=== PATIENT | female | born 1950 | race Caucasian/White ===

== ENCOUNTER 2016-10-01 10:06 | Emergency (ER) | payer OTHER | END 2016-10-01 11:15 | disposition home or self-care (01) | LOC: BURERS 10:06 | DX: H11.32 Conjunctival hemorrhage, left eye (principal); I10 Essential (primary) hypertension; E03.9 Hypothyroidism, unspecified; K58.0 Irritable bowel syndrome with diarrhea; Z87.891 Personal history of nicotine dependence; Z79.899 Other long term (current) drug therapy | CPT/HCPCS: 99282 ==

== ENCOUNTER 2018-02-28 12:32 | Emergency (ER) | payer OTHER ==
[2018-02-28] MEDS ORDERED: Ondansetron ODT 4 MG TAB ONE (13:01)
[2018-02-28 13:27] LABS: #Eosinphils 0.1 thou/uL (0.0-0.7); #Lymphocytes 1.1 thou/uL (1.20-3.40); #Monocytes 0.4 thou/uL (0.11-0.59); #Neutrophils 6.2 thou/uL (1.40-6.50); %Basophils 0.5 % (0.0-1.0); %Eosinophils 1.5 % (0.0-10.0); %Lymphocytes 13.4 % (21.0-51.0); %Monocytes 4.8 % (0.0-10.0); %Neutrophils 79.8 % (42.0-75.0); Hemoglobin 13.6 g/dL (12.0-16.0); Mean Corpuscular HGB CONC 36.5 g/dL (32.0-36.0); Mean Corpuscular Hemoglobin 33.8 pg (27.0-31.0); Mean Corpuscular Volume 92.5 fL (78.0-98.0); Mean Platelet Volume 5.5 fL (7.4-10.4); Platelet Count 305 thou/uL (130-400); RBC Distribution Width 12.9 % (11.5-14.5); Red Blood Cell (RBC) Count 4.03 mill/uL (4.20-5.40); White Blood Cell (WBC) Count 7.8 thou/uL (4.8-10.8)
[2018-02-28 13:34] LABS: ALT (SGPT) 16 U/L (8-55); AST (SGOT) 16 U/L (5-34); Albumin 4.2 g/dL (3.4-4.8); Alkaline Phosphatase 93 U/L (40-150); Anion Gap 17 mmol/L (10-20); BUN (Urea Nitrogen) 15 mg/dL (9.8-20.1); Bilirubin, Total 0.5 mg/dL (0.2-1.2); Calc. Creatinine Clearance 0 mL/min (70-130); Calcium 9.7 mg/dL (7.8-10.44); Carbon Dioxide 25 mmol/L (23-31); Chloride 104 mmol/L (98-107); Estimated GFR-MDRD 70; Globulin 2.9 g/dL (2.4-3.5); Glucose 92 mg/dL (80-115); Protein, Total 7.1 g/dL (6.0-8.3); Sodium 142 mmol/L (136-145)
[2018-02-28] MEDS ORDERED: Ondansetron PF 4 MG/2 ML Vial ONE (14:00)
== END 2018-02-28 15:33 | disposition home or self-care (01) ==
LOC: BURERS 12:32
DX: R11.2 Nausea with vomiting, unspecified (principal); E03.9 Hypothyroidism, unspecified; K58.9 Irritable bowel syndrome, unspecified; I10 Essential (primary) hypertension; Z79.899 Other long term (current) drug therapy
CPT/HCPCS: 36415; 80053; 84443; 84484; 85025; 93005; 96361; 96374; J2405; Q0162

== ENCOUNTER 2018-05-11 09:59 | Emergency (ER) | payer OTHER ==
[2018-05-11 10:23] LABS: #Eosinphils 0.3 thou/uL (0.0-0.7); #Lymphocytes 1.1 thou/uL (1.20-3.40); #Monocytes 0.3 thou/uL (0.11-0.59); #Neutrophils 3.9 thou/uL (1.40-6.50); %Basophils 0.4 % (0.0-1.0); %Eosinophils 4.5 % (0.0-10.0); %Lymphocytes 19.7 % (21.0-51.0); %Monocytes 5.3 % (0.0-10.0); Hemoglobin 13.2 g/dL (12.0-16.0); Mean Corpuscular HGB CONC 33.4 g/dL (32.0-36.0); Mean Corpuscular Hemoglobin 32.8 pg (27.0-31.0); Mean Corpuscular Volume 98.2 fL (78.0-98.0); Mean Platelet Volume 5.6 fL (7.4-10.4); Platelet Count 346 thou/uL (130-400); RBC Distribution Width 14.2 % (11.5-14.5); Red Blood Cell (RBC) Count 4.02 mill/uL (4.20-5.40); White Blood Cell (WBC) Count 5.5 thou/uL (4.8-10.8)
[2018-05-11] MEDS ORDERED: Aspirin Chewable 81 MG TAB ONE (10:30)
[2018-05-11 10:41] LABS: ALT (SGPT) 19 U/L (8-55); AST (SGOT) 18 U/L (5-34); Albumin 4.2 g/dL (3.4-4.8); Alkaline Phosphatase 112 U/L (40-150); Anion Gap 15 mmol/L (10-20); BUN (Urea Nitrogen) 13 mg/dL (9.8-20.1); Bilirubin, Total 0.5 mg/dL (0.2-1.2); Calc. Creatinine Clearance 0 mL/min (70-130); Calcium 9.6 mg/dL (7.8-10.44); Carbon Dioxide 24 mmol/L (23-31); Chloride 107 mmol/L (98-107); Estimated GFR-MDRD 79; Globulin 2.7 g/dL (2.4-3.5); Glucose 103 mg/dL (80-115); Potassium 3.9 mmol/L (3.5-5.1); Protein, Total 6.9 g/dL (6.0-8.3); Sodium 142 mmol/L (136-145)
[2018-05-11 12:14] LABS: Clarity Cloudy (Clear); pH, Urine 5.5 (5.0-9.0)
[2018-05-11 12:15] LABS: Bilirubin Small (Negative); Blood, Urine Trace (Negative); Glucose, Urine (Dipstick) Negative (Negative); Leukocyte Negative (Negative); Nitrite Negative (Negative); Protein, Urine (Dipstick) 30 mg/dL (Neg-Trace); Urobilinogen 0.2 mg/dL (0.2-1.0)
[2018-05-11 12:16] LABS: Bacteria/HPF 2+ HPF (None Seen); Crystals/HPF 4+ CA OXALATE HPF (Negative); RBC/HPF 0-3 HPF (0-3); Specific Gravity, Urine 1.032 (1.002-1.036); Squamous Epithelial 0-3 HPF (0-3); WBC/HPF 0-3 HPF (0-3)
[2018-05-11] MEDS ORDERED: cefTRIAXone\\ROCEPHIN 1 GM VIAL ONE (12:53)
[2018-05-11] MEDS ORDERED: Metoprolol Tartrate 5 MG/5 ML VIAL ONE (13:25)
--- NOTE | 2018-05-11 16:45 | RAD ---
PORTABLE CHEST: Date: 05-11-18 An AP portable film at 1023 is compared with a 09-01-06 study. FINDINGS: The heart remains normal in size and the lungs are clear. No infiltrate or effusion was seen. There i s no vascular congestion or edema. The mediastinum appears normal. IMPRESSION: No acute finding. POS: HOME
== END 2018-05-11 13:45 | disposition home or self-care (01) ==
LOC: BURERS 09:59
DX: R00.2 Palpitations (principal); N30.90 Cystitis, unspecified without hematuria; E03.9 Hypothyroidism, unspecified; I10 Essential (primary) hypertension; Z79.899 Other long term (current) drug therapy; Z79.82 Long term (current) use of aspirin
CPT/HCPCS: 36415; 71045; 80053; 81003; 81015; 84484; 85025; 85379; 87086; 93005; 94760; 96365; 96375; J0696

== ENCOUNTER 2018-06-25 16:04 | Outpatient (CLI) | payer OTHER ==
--- NOTE | 2018-06-25 20:29 | RAD ---
LEFT SHOULDER THREE VIEWS: 06/25/18 A calcification lateral to the humeral head suggests calcific tendonitis. There is some mild degenera tive changes in the AC joint. No fracture or dislocation was seen. There might be some faint calcific ation in the articular cartilage of the humeral head. The scapula and visible adjacent ribs appear no rmal. 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 Mild degenerative change of the AC joint. POS: HOME
== END 2018-06-25 16:05 | disposition home or self-care (01) ==
LOC: BURRAD 16:04
PROVIDERS: ATTEND Family Medicine
DX: M25.512 Pain in left shoulder (principal); M19.012 Primary osteoarthritis, left shoulder

== ENCOUNTER 2018-10-11 10:04 | Emergency (ER) | payer OTHER ==
[2018-10-11 10:42] LABS: #Eosinphils 0.1 thou/uL (0.0-0.7); #Monocytes 0.3 thou/uL (0.11-0.59); #Neutrophils 3.3 thou/uL (1.40-6.50); %Basophils 0.9 % (0.0-1.0); %Eosinophils 1.8 % (0.0-10.0); %Lymphocytes 21.6 % (21.0-51.0); %Monocytes 5.9 % (0.0-10.0); %Neutrophils 69.8 % (42.0-75.0); Hemoglobin 12.8 g/dL (12.0-16.0); Mean Corpuscular Hemoglobin 33.7 pg (27.0-31.0); Mean Corpuscular Volume 99.1 fL (78.0-98.0); Mean Platelet Volume 5.5 fL (7.4-10.4); Platelet Count 319 thou/uL (130-400); RBC Distribution Width 13.3 % (11.5-14.5); Red Blood Cell (RBC) Count 3.81 mill/uL (4.20-5.40); White Blood Cell (WBC) Count 4.7 thou/uL (4.8-10.8)
[2018-10-11 10:56] LABS: ALT (SGPT) 11 U/L (8-55); AST (SGOT) 15 U/L (5-34); Alkaline Phosphatase 96 U/L (40-150); Anion Gap 12 mmol/L (10-20); BUN (Urea Nitrogen) 16 mg/dL (9.8-20.1); Bilirubin, Total 0.6 mg/dL (0.2-1.2); Calc. Creatinine Clearance 0 mL/min (70-130); Calcium 9.4 mg/dL (7.8-10.44); Carbon Dioxide 27 mmol/L (23-31); Chloride 107 mmol/L (98-107); Estimated GFR-MDRD 72; Globulin 2.5 g/dL (2.4-3.5); Glucose 112 mg/dL (80-115); Potassium 4.1 mmol/L (3.5-5.1); Protein, Total 6.5 g/dL (6.0-8.3); Sodium 142 mmol/L (136-145)
[2018-10-11 11:11] LABS: Thyroid Stimulating Hormone 0.819 uIU/mL (0.35-4.94)
== END 2018-10-11 11:26 | disposition home or self-care (01) ==
LOC: BURERS 10:04
DX: R53.1 Weakness (principal); E03.9 Hypothyroidism, unspecified; I10 Essential (primary) hypertension; Z79.899 Other long term (current) drug therapy
CPT/HCPCS: 80053; 83605; 83880; 84443; 84481; 84484; 85025; 93005

== ENCOUNTER 2018-11-04 14:50 | Emergency (ER) | payer OTHER ==
[~2018-11-04 14:50] MED LIST: Iopamidol 370 76% 100 ML VIAL ONE
[2018-11-04 15:25] LABS: #Eosinphils 0.1 thou/uL (0.0-0.7); #Lymphocytes 1.4 thou/uL (1.20-3.40); #Monocytes 0.4 thou/uL (0.11-0.59); #Neutrophils 3.5 thou/uL (1.40-6.50); %Basophils 0.9 % (0.0-1.0); %Eosinophils 1.8 % (0.0-10.0); %Lymphocytes 25.2 % (21.0-51.0); %Monocytes 6.6 % (0.0-10.0); %Neutrophils 65.6 % (42.0-75.0); Hemoglobin 13.6 g/dL (12.0-16.0); Mean Corpuscular HGB CONC 32.8 g/dL (32.0-36.0); Mean Corpuscular Hemoglobin 33.1 pg (27.0-31.0); Mean Platelet Volume 5.6 fL (7.4-10.4); Platelet Count 366 thou/uL (130-400); RBC Distribution Width 13.2 % (11.5-14.5); Red Blood Cell (RBC) Count 4.12 mill/uL (4.20-5.40); White Blood Cell (WBC) Count 5.4 thou/uL (4.8-10.8)
[2018-11-04 15:48] LABS: ALT (SGPT) 20 U/L (8-55); AST (SGOT) 27 U/L (5-34); Albumin 4.5 g/dL (3.4-4.8); Alkaline Phosphatase 104 U/L (40-110); Anion Gap 17 mmol/L (10-20); BUN (Urea Nitrogen) 13 mg/dL (9.8-20.1); Bilirubin, Total 0.6 mg/dL (0.2-1.2); Calc. Creatinine Clearance 0 mL/min (70-130); Calcium 9.8 mg/dL (7.8-10.44); Carbon Dioxide 26 mmol/L (23-31); Chloride 104 mmol/L (98-107); Estimated GFR-MDRD 71; Globulin 2.6 g/dL (2.4-3.5); Glucose 90 mg/dL (80-115); Potassium 4.4 mmol/L (3.5-5.1); Protein, Total 7.1 g/dL (6.0-8.3); Sodium 143 mmol/L (136-145)
--- NOTE | 2018-11-04 19:25 | CT ---
CT AORTIC DISSECTION WITH CONTRAST: 11/04/18 CT angio of the chest and the abdomen down through the bifurcation of the aorta was obtained in this patient with back pain and right upper quadrant pain. Axial slices were required, then MIP reconstruc tions in the coronal and sagittal planes were obtained. There is no sign of aortic aneurysm or dissec tion at any point. The ascending aorta is larger than usual, measuring 4.1 cm wide. The pulmonary ar teries fill very well and show no defects to suggest emboli. The celiac artery and its branches, SMA, and JANA all fill normally. Both renal arteries fill in a normal fashion. Lumbar arteries coming off the back of the aorta fill well. The common iliac and proximal internal iliac arteries fill as well. Thus, there was no evidence of aortic abnormality other than a somewhat wide ascending aorta. The CT of the chest portion of the exam showed the lungs to be clear except for some dependent atelec tasis. No infiltrate, effusion, or worrisome nodule was found. The coronary arteries fill well. There is no sign of a pericardial effusion. The heart is upper normal in size. The liver, spleen, pancreas, gallbladder, kidneys and proximal bowel all appeared normal. There was n o distention of bowel to suggest obstruction and there was no bowel wall thickening. No free air or f ree fluid was seen. Spinal stenosis is noted at L4-L5 due to facet and ligamentous hypertrophy as wel l as a diffusely bulging disc. A mild degree of spinal stenosis is present at L3-L4 also. IMPRESSION: 1. No evidence of aortic aneurysm or dissection. Mild widening of the ascending aorta. 2. No other findings to explain the patient's pain. 3. All visible aortic branches fill normally. POS: HOME
== END 2018-11-04 16:38 | disposition home or self-care (01) ==
LOC: BURERS 14:50
DX: R10.11 Right upper quadrant pain (principal); M54.6 Pain in thoracic spine; E03.9 Hypothyroidism, unspecified; K58.9 Irritable bowel syndrome, unspecified; I10 Essential (primary) hypertension; Z79.899 Other long term (current) drug therapy; Z79.82 Long term (current) use of aspirin; Z79.891 Long term (current) use of opiate analgesic
CPT/HCPCS: 71275; 72191; 74175; 80053; 83690; 83880; 84484; 85025; 85379; Q9967

== ENCOUNTER 2018-11-07 17:33 | Emergency (ER) | payer OTHER ==
[2018-11-07 18:26] LABS: #Eosinphils 0.2 thou/uL (0.0-0.7); #Lymphocytes 1.4 thou/uL (1.20-3.40); #Monocytes 0.4 thou/uL (0.11-0.59); #Neutrophils 3.6 thou/uL (1.40-6.50); %Basophils 0.9 % (0.0-1.0); %Eosinophils 3.2 % (0.0-10.0); %Lymphocytes 24.7 % (21.0-51.0); %Monocytes 6.7 % (0.0-10.0); %Neutrophils 64.5 % (42.0-75.0); Hemoglobin 12.7 g/dL (12.0-16.0); Mean Corpuscular HGB CONC 34.4 g/dL (32.0-36.0); Mean Corpuscular Hemoglobin 33.7 pg (27.0-31.0); Mean Corpuscular Volume 97.9 fL (78.0-98.0); Mean Platelet Volume 5.5 fL (7.4-10.4); Platelet Count 348 thou/uL (130-400); RBC Distribution Width 12.9 % (11.5-14.5); Red Blood Cell (RBC) Count 3.78 mill/uL (4.20-5.40); White Blood Cell (WBC) Count 5.6 thou/uL (4.8-10.8)
[2018-11-07] MEDS ORDERED: Aspirin Chewable 81 MG TAB ONE (18:28)
[2018-11-07 18:40] LABS: ALT (SGPT) 16 U/L (8-55); AST (SGOT) 15 U/L (5-34); Albumin 4.1 g/dL (3.4-4.8); Alkaline Phosphatase 103 U/L (40-110); Anion Gap 15 mmol/L (10-20); BUN (Urea Nitrogen) 18 mg/dL (9.8-20.1); Bilirubin, Total 0.6 mg/dL (0.2-1.2); CK (CPK) 50 U/L (29-168); Calc. Creatinine Clearance 0 mL/min (70-130); Calcium 9.3 mg/dL (7.8-10.44); Carbon Dioxide 24 mmol/L (23-31); Chloride 105 mmol/L (98-107); Estimated GFR-MDRD 54; Globulin 2.6 g/dL (2.4-3.5); Glucose 133 mg/dL (80-115); Lipase 15 U/L (8-78); Potassium 3.8 mmol/L (3.5-5.1); Protein, Total 6.7 g/dL (6.0-8.3); Sodium 140 mmol/L (136-145)
--- NOTE | 2018-11-07 22:24 | RAD ---
PORTABLE CHEST: 11/07/18 An AP portable film at 1816 is compared with the 05/11/18 study. The heart is still within normal limits of size, though it seems slightly larger than it was before. There is no vascular congestion, edema, or pleural effusion. The lungs are clear. IMPRESSION: Minimal increase in heart size. POS: HOME
== END 2018-11-07 20:20 | disposition short-term general hospital (02) ==
LOC: BURERS 17:33
DX: R07.2 Precordial pain (principal); E03.9 Hypothyroidism, unspecified; I10 Essential (primary) hypertension; Z86.73 Personal history of transient ischemic attack (TIA), and cerebral infarction without residual deficits; Z79.899 Other long term (current) drug therapy; Z79.82 Long term (current) use of aspirin; Z87.891 Personal history of nicotine dependence
CPT/HCPCS: 71045; 80053; 82550; 83690; 84484; 85025; 93005

== ENCOUNTER 2018-11-12 15:22 | Inpatient (IN) | payer MEDICARE, OTHER ==
[2018-11-12] MEDS: Levothyroxine Sodium 50 MCG TAB PO SCH (21:16)
[2018-11-12] MEDS: Atorvastatin Calcium 40 MG TAB PO SCH (21:16)
[2018-11-12] MEDS: TICAGRELOR 90 MG TABLET PO SCH (23:32)
[2018-11-13] MEDS: Ubidecarenone 50 MG CAP PO SCH (08:42)
[2018-11-13] MEDS: Aspirin 81 mg Enteric Coated Tablet PO SCH (08:43)
[2018-11-13] MEDS: Mirtazapine 15 MG TAB PO SCH (08:44)
[2018-11-13] MEDS: TICAGRELOR 90 MG TABLET PO SCH ×2 (08:45→20:49)
[2018-11-13] MEDS ORDERED: MESALAMINE 1.2 GM PO SCH (09:00)
[2018-11-13] MEDS ORDERED: FLU VACC TS2019-20(65YR UP)/PF 180 MCG/0.5 ML SYRINGE IM ONE (09:00)
[2018-11-13] MEDS ORDERED: AZATHIOPRINE 150 MG PO SCH (09:00)
[2018-11-13] MEDS ORDERED: azaTHIOprine 50 MG TAB PO SCH (15:00)
[2018-11-13] MEDS ORDERED: Mesalamine DR 400 mg Capsule PO SCH (15:00)
[2018-11-13] MEDS: Mesalamine DR 400 mg Capsule PO SCH (15:19)
[2018-11-13] MEDS: azaTHIOprine 50 MG TAB PO SCH (15:21)
[2018-11-13] MEDS: Levothyroxine Sodium 50 MCG TAB PO SCH (20:48)
[2018-11-13] MEDS: Atorvastatin Calcium 40 MG TAB PO SCH (20:48)
[2018-11-14] MEDS: Ubidecarenone 50 MG CAP PO SCH (08:20)
[2018-11-14] MEDS: Mirtazapine 15 MG TAB PO SCH (08:21)
[2018-11-14] MEDS: Aspirin 81 mg Enteric Coated Tablet PO SCH (08:21)
[2018-11-14] MEDS: azaTHIOprine 50 MG TAB PO SCH (08:22)
[2018-11-14] MEDS: TICAGRELOR 90 MG TABLET PO SCH ×2 (08:22→19:45)
[2018-11-14] MEDS: Mesalamine DR 400 mg Capsule PO SCH (08:24)
[2018-11-14] MEDS: Loperamide HCl 2 MG CAP PO PRN (09:57)
[2018-11-14] MEDS: Atorvastatin Calcium 40 MG TAB PO SCH (19:43)
[2018-11-14] MEDS: Famotidine 20 MG TAB PO SCH (19:44)
[2018-11-14] MEDS: Levothyroxine Sodium 50 MCG TAB PO SCH (19:45)
[2018-11-15] MEDS: Ubidecarenone 50 MG CAP PO SCH (09:11)
[2018-11-15] MEDS: Famotidine 20 MG TAB PO SCH ×2 (09:11→19:48)
[2018-11-15] MEDS: Aspirin 81 mg Enteric Coated Tablet PO SCH (09:12)
[2018-11-15] MEDS: Mirtazapine 15 MG TAB PO SCH (09:12)
[2018-11-15] MEDS: azaTHIOprine 50 MG TAB PO SCH (09:13)
[2018-11-15] MEDS: Mesalamine DR 400 mg Capsule PO SCH (09:13)
[2018-11-15] MEDS: Loperamide HCl 2 MG CAP PO PRN (09:18)
[2018-11-15] MEDS: TICAGRELOR 90 MG TABLET PO SCH ×2 (09:24→19:47)
[2018-11-15] MEDS: Acetaminophen 325 MG TAB PO PRN ×2 (10:29→19:49)
[2018-11-15] MEDS: Levothyroxine Sodium 50 MCG TAB PO SCH (19:49)
[2018-11-15] MEDS: Atorvastatin Calcium 40 MG TAB PO SCH (19:49)
[2018-11-16 02:12] VITALS: BMI 33.6
[2018-11-16] MEDS: Aspirin 81 mg Enteric Coated Tablet PO SCH (08:16)
[2018-11-16] MEDS: Ubidecarenone 50 MG CAP PO SCH (08:17)
[2018-11-16] MEDS: Mirtazapine 15 MG TAB PO SCH (08:17)
[2018-11-16] MEDS: Acetaminophen 325 MG TAB PO PRN ×3 (08:17→23:06)
[2018-11-16] MEDS: Famotidine 20 MG TAB PO SCH ×2 (08:17→20:18)
[2018-11-16] MEDS: TICAGRELOR 90 MG TABLET PO SCH ×2 (08:18→20:18)
[2018-11-16] MEDS: Mesalamine DR 400 mg Capsule PO SCH (08:18)
[2018-11-16] MEDS: azaTHIOprine 50 MG TAB PO SCH (10:25)
[2018-11-16] MEDS: Atorvastatin Calcium 40 MG TAB PO SCH (20:18)
[2018-11-16] MEDS: Levothyroxine Sodium 50 MCG TAB PO SCH (20:18)
[2018-11-17] MEDS: Acetaminophen 325 MG TAB PO PRN ×3 (05:25→20:22)
[2018-11-17] MEDS: Mesalamine DR 400 mg Capsule PO SCH (08:15)
[2018-11-17] MEDS: Ubidecarenone 50 MG CAP PO SCH (08:16)
[2018-11-17] MEDS: Mirtazapine 15 MG TAB PO SCH (08:17)
[2018-11-17] MEDS: azaTHIOprine 50 MG TAB PO SCH (08:17)
[2018-11-17] MEDS: Aspirin 81 mg Enteric Coated Tablet PO SCH (08:17)
[2018-11-17] MEDS: Famotidine 20 MG TAB PO SCH ×2 (08:18→20:22)
[2018-11-17] MEDS: TICAGRELOR 90 MG TABLET PO SCH ×2 (08:20→20:22)
[2018-11-17] MEDS: Levothyroxine Sodium 50 MCG TAB PO SCH (20:22)
[2018-11-17] MEDS: Atorvastatin Calcium 40 MG TAB PO SCH (20:22)
[2018-11-18] MEDS: Mesalamine DR 400 mg Capsule PO SCH (08:48)
[2018-11-18] MEDS: azaTHIOprine 50 MG TAB PO SCH (08:49)
[2018-11-18] MEDS: Famotidine 20 MG TAB PO SCH ×2 (08:50→20:02)
[2018-11-18] MEDS: Mirtazapine 15 MG TAB PO SCH (08:50)
[2018-11-18] MEDS: Aspirin 81 mg Enteric Coated Tablet PO SCH (08:50)
[2018-11-18] MEDS: Ubidecarenone 50 MG CAP PO SCH (08:51)
[2018-11-18] MEDS: TICAGRELOR 90 MG TABLET PO SCH ×2 (08:51→20:02)
[2018-11-18] MEDS: Levothyroxine Sodium 50 MCG TAB PO SCH (20:01)
[2018-11-18] MEDS: Atorvastatin Calcium 40 MG TAB PO SCH (20:02)
[2018-11-18] MEDS: Acetaminophen 325 MG TAB PO PRN (20:02)
[2018-11-19] MEDS: azaTHIOprine 50 MG TAB PO SCH (09:02)
[2018-11-19] MEDS: Mesalamine DR 400 mg Capsule PO SCH (09:03)
[2018-11-19] MEDS: Aspirin 81 mg Enteric Coated Tablet PO SCH (09:03)
[2018-11-19] MEDS: Ubidecarenone 50 MG CAP PO SCH (09:04)
[2018-11-19] MEDS: TICAGRELOR 90 MG TABLET PO SCH ×2 (09:05→20:44)
[2018-11-19] MEDS: Mirtazapine 15 MG TAB PO SCH (09:05)
[2018-11-19] MEDS: Famotidine 20 MG TAB PO SCH ×2 (09:06→20:39)
[2018-11-19] MEDS: Loperamide HCl 2 MG CAP PO PRN (09:09)
[2018-11-19] MEDS: Atorvastatin Calcium 40 MG TAB PO SCH (20:39)
[2018-11-19] MEDS: Levothyroxine Sodium 50 MCG TAB PO SCH (20:39)
[2018-11-20 06:21] VITALS: BP 129/66; TEMP 97.8
[2018-11-20] MEDS: Mirtazapine 15 MG TAB PO SCH (09:51)
[2018-11-20] MEDS: Ubidecarenone 50 MG CAP PO SCH (09:51)
[2018-11-20] MEDS: azaTHIOprine 50 MG TAB PO SCH (09:52)
[2018-11-20] MEDS: Mesalamine DR 400 mg Capsule PO SCH (09:52)
[2018-11-20] MEDS: Aspirin 81 mg Enteric Coated Tablet PO SCH (09:52)
[2018-11-20] MEDS: Loperamide HCl 2 MG CAP PO PRN (09:53)
[2018-11-20] MEDS: TICAGRELOR 90 MG TABLET PO SCH (09:53)
[2018-11-20] MEDS: Famotidine 20 MG TAB PO SCH (09:53)
--- NOTE | 2018-11-24 12:23 | DIS ---
DATE OF ADMISSION: 11/12/2018 DATE OF DISCHARGE: 11/20/2018 ADMISSION DIAGNOSES: 1. Coronary artery disease, status post stent placement. 2. History of cerebrovascular accident with left-sided hemiparesis. 3. Hyperlipidemia. 4. Hypertension. 5. Hypothyroidism. 6. Immunocompromised state due to ulcerative colitis. 7. Ulcerative colitis. DISCHARGE DIAGNOSES: 1. Coronary artery disease, status post stent placement. 2. History of cerebrovascular accident with left-sided hemiparesis. 3. Hyperlipidemia. 4. Hypertension. 5. Hypothyroidism. 6. Immunocompromised state due to ulcerative colitis. 7. Ulcerative colitis. PROCEDURES: None. HISTORY AND PHYSICAL: Please see history and physical update from the date of admission, referring to history and physical November 07, 2018, performed at [facility]. [facility] COURSE: Ms. Hastings is a very motivated 68-year-old female, who in the outpatient setting was having chest pain and presented to the [place] [facility] for further care. She did in fact get transferred to [facility] to rule out for acute coronary syndrome. She underwent stress testing which was abnormal and had a cardiac catheterization with bare-metal stent placement in the ramus with a mid RCA 40% stenosis on November 10, 2018, by Dr. Hua Nash with Cardiology. She transferred here to undergo PT and OT for cardiac rehab. Her hospital course was uncomplicated and the patient was cleared to be discharged home with plans to participate in outpatient cardiac rehab and to follow up with Dr. Nash in approximately 2 to 3 weeks. Her medications were not changed during her fpc course. Discharged home with outpatient order for home health with PT and OT. MEDICATIONS: 1. Brilinta 90 mg p.o. b.i.d., to be continued for at least one month. We will discuss with Dr. 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 2. Loperamide 2 mg p.o. as directed p.r.n. diarrhea. 3. Imuran 150 mg p.o. daily. 4. Vitamin D3 1000 units p.o. daily. 5. CoQ10 200 mg p.o. daily. 6. Remeron 15 mg p.o. at bedtime. 7. Toprol-XL 50 mg p.o. daily. 8. Lipitor 40 mg p.o. at bedtime. 9. Aspirin 81 mg p.o. daily. 10. Mesalamine 1.2 g p.o. daily. 11. Enalapril 10 mg p.o. at bedtime. 12. Synthroid 50 mcg p.o. at bedtime. FOLLOWUP: Followup will be with Dr. Morales in approximately [address] Nash in approximately 2 to 3 weeks. Job ID: [id number]
== END 2018-11-20 11:15 | disposition home or self-care (01) | DRG 949 ==
LOC: BURMED 17:30
PROVIDERS: ADMIT Family Medicine; ATTEND Family Medicine
DX: Z48.812 Encounter for surgical aftercare following surgery on the circulatory system (principal); K51.90 Ulcerative colitis, unspecified, without complications; R53.81 Other malaise; I25.10 Atherosclerotic heart disease of native coronary artery without angina pectoris; I12.9 Hypertensive chronic kidney disease with stage 1 through stage 4 chronic kidney disease, or unspecified chronic kidney disease; N18.3 Chronic kidney disease, stage 3 (moderate); E11.22 Type 2 diabetes mellitus with diabetic chronic kidney disease; E78.5 Hyperlipidemia, unspecified; E03.9 Hypothyroidism, unspecified; Z95.5 Presence of coronary angioplasty implant and graft; Z86.73 Personal history of transient ischemic attack (TIA), and cerebral infarction without residual deficits
CPT/HCPCS: 90471; 90662; G0008; J7500

== ENCOUNTER 2018-11-23 11:15 | Emergency (ER) | payer OTHER ==
[2018-11-23 11:33] LABS: #Eosinphils 0.1 thou/uL (0.0-0.7); #Lymphocytes 0.9 thou/uL (1.20-3.40); #Monocytes 0.3 thou/uL (0.11-0.59); #Neutrophils 3.7 thou/uL (1.40-6.50); %Basophils 0.6 % (0.0-1.0); %Eosinophils 1.9 % (0.0-10.0); %Lymphocytes 18.1 % (21.0-51.0); %Monocytes 6.4 % (0.0-10.0); Hemoglobin 12.1 g/dL (12.0-16.0); Mean Corpuscular HGB CONC 34.3 g/dL (32.0-36.0); Mean Corpuscular Hemoglobin 33.9 pg (27.0-31.0); Mean Corpuscular Volume 98.9 fL (78.0-98.0); Platelet Count 384 thou/uL (130-400); RBC Distribution Width 13.5 % (11.5-14.5); Red Blood Cell (RBC) Count 3.57 mill/uL (4.20-5.40)
--- NOTE | 2018-11-23 11:47 | RAD ---
Portable frontal chest radiograph: 11/23/2018 COMPARISON: 11/08/2018 HISTORY: Chest pain FINDINGS: Lungs are clear. Heart and mediastinal contours appear within normal limits. IMPRESSION: No acute findings.
[2018-11-23 11:50] LABS: ALT (SGPT) 21 U/L (8-55); AST (SGOT) 21 U/L (5-34); Albumin 4.1 g/dL (3.4-4.8); Alkaline Phosphatase 101 U/L (40-110); Anion Gap 13 mmol/L (10-20); BUN (Urea Nitrogen) 16 mg/dL (9.8-20.1); Bilirubin, Total 0.6 mg/dL (0.2-1.2); CK (CPK) 37 U/L (29-168); Calc. Creatinine Clearance 0 mL/min (70-130); Calcium 9.3 mg/dL (7.8-10.44); Carbon Dioxide 26 mmol/L (23-31); Chloride 107 mmol/L (98-107); Estimated GFR-MDRD 74; Globulin 2.9 g/dL (2.4-3.5); Glucose 99 mg/dL (80-115); Potassium 4.2 mmol/L (3.5-5.1); Sodium 142 mmol/L (136-145)
[2018-11-23] MEDS ORDERED: Dicyclomine 20 MG TAB ONE (12:09)
[2018-11-23] MEDS ORDERED: Ondansetron ODT 4 MG TAB ONE (12:09)
== END 2018-11-23 12:30 | disposition home or self-care (01) ==
LOC: BURERS 11:15
DX: K29.70 Gastritis, unspecified, without bleeding (principal); R07.89 Other chest pain; E03.9 Hypothyroidism, unspecified; I10 Essential (primary) hypertension; Z86.73 Personal history of transient ischemic attack (TIA), and cerebral infarction without residual deficits; Z79.82 Long term (current) use of aspirin; Z79.899 Other long term (current) drug therapy
CPT/HCPCS: 71045; 80053; 82550; 84484; 85025; 93005; Q0162

== ENCOUNTER 2019-04-23 01:15 | Emergency (ER) | payer OTHER ==
[2019-04-23] MEDS ORDERED: Tetracaine 0.5% OPHTH SOLN/PF 4 ML BOT ONE (01:37)
== END 2019-04-23 02:05 | disposition home or self-care (01) ==
LOC: BURERS 01:15
DX: H57.12 Ocular pain, left eye (principal); E03.9 Hypothyroidism, unspecified; I10 Essential (primary) hypertension; Z86.73 Personal history of transient ischemic attack (TIA), and cerebral infarction without residual deficits; Z87.891 Personal history of nicotine dependence; Z79.899 Other long term (current) drug therapy
CPT/HCPCS: 99283

== ENCOUNTER → 2019-06-07 | Emergency (ER) | payer MEDICARE, OTHER ==
[~2019-06-07] MED LIST changes: +Aspirin Chewable 81 MG TAB ONE; -Iopamidol 370 76% 100 ML VIAL ONE
[2019-06-07 11:18] LABS: #Eosinphils 0.1 thou/uL (0.0-0.7); #Monocytes 0.4 thou/uL (0.11-0.59); #Neutrophils 4.1 thou/uL (1.40-6.50); %Basophils 0.6 % (0.0-1.0); %Eosinophils 2.2 % (0.0-10.0); %Lymphocytes 17.9 % (21.0-51.0); %Monocytes 6.6 % (0.0-10.0); %Neutrophils 72.8 % (42.0-75.0); Hemoglobin 12.9 g/dL (12.0-16.0); Mean Corpuscular HGB CONC 33.8 g/dL (32.0-36.0); Mean Corpuscular Hemoglobin 34.1 pg (27.0-31.0); Mean Platelet Volume 5.8 fL (7.4-10.4); Platelet Count 298 thou/uL (130-400); RBC Distribution Width 13.1 % (11.5-14.5); White Blood Cell (WBC) Count 5.7 thou/uL (4.8-10.8)
[2019-06-07 11:36] LABS: MDiff Complete? YES; Macrocytosis SLIGHT = 6-15 cells (100X) (0-5/hpf); Platelet Morphology Comment Appears Adequate
[2019-06-07 11:43] LABS: ALT (SGPT) 15 U/L (8-55); AST (SGOT) 17 U/L (5-34); Albumin 3.9 g/dL (3.4-4.8); Alkaline Phosphatase 77 U/L (40-110); Anion Gap 13 mmol/L (10-20); BUN (Urea Nitrogen) 16 mg/dL (9.8-20.1); Bilirubin, Total 0.5 mg/dL (0.2-1.2); Calc. Creatinine Clearance 0 mL/min (70-130); Calcium 8.9 mg/dL (7.8-10.44); Carbon Dioxide 25 mmol/L (23-31); Chloride 107 mmol/L (98-107); Estimated GFR-MDRD 68; Globulin 2.7 g/dL (2.4-3.5); Glucose 110 mg/dL (80-115); Lipase 10 U/L (8-78); Protein, Total 6.6 g/dL (6.0-8.3); Sodium 141 mmol/L (136-145)
--- NOTE | 2019-06-07 19:03 | RAD ---
PORTABLE CHEST: Date: 06-07-2019 An AP portable film at 1109 is compared with a 11-23-18 study. FINDINGS: The heart is normal in size and the lungs are clear. No infiltrate or effusion was seen. The mediasti num appears normal and the trachea is midline. IMPRESSION: No acute thoracic findings. POS: HOME
== END ==
LOC: BURERS 10:33
DX: R07.9 Chest pain, unspecified (principal); R42 Dizziness and giddiness; R20.2 Paresthesia of skin; E03.9 Hypothyroidism, unspecified; I10 Essential (primary) hypertension; Z86.73 Personal history of transient ischemic attack (TIA), and cerebral infarction without residual deficits; Z79.899 Other long term (current) drug therapy; Z79.82 Long term (current) use of aspirin
CPT/HCPCS: 71045; 80053; 83690; 85025

== ENCOUNTER 2019-12-19 11:10 | Emergency (ER) | payer OTHER ==
[2019-12-19 19:36] LABS: SARS-CoV-2 MS2 Positive; SARS-CoV-2 N Gene Negative; SARS-CoV-2 S Gene Negative; SARS-CoV-2 by NAA Not Detected (NotDetected); SARS-CoV-2 orf1ab Negative
== END 2019-12-19 12:09 | disposition home or self-care (01) ==
LOC: BURERS 11:10
DX: B34.9 Viral infection, unspecified (principal); Z20.828 Contact with and (suspected) exposure to other viral communicable diseases; E03.9 Hypothyroidism, unspecified; I10 Essential (primary) hypertension; F41.9 Anxiety disorder, unspecified; F32.9 Major depressive disorder, single episode, unspecified
CPT/HCPCS: 87635; 87804; 99283; U0003

== ENCOUNTER 2021-12-17 15:29 | Outpatient (CLI) | payer OTHER | END 2021-12-17 15:30 | disposition home or self-care (01) | LOC: BURRAD 15:29 | PROVIDERS: ATTEND Nurse Practitioner Family | DX: M54.50 Low back pain, unspecified (principal); M54.6 Pain in thoracic spine; M25.511 Pain in right shoulder; R05.9 Cough, unspecified; R09.89 Other specified symptoms and signs involving the circulatory and respiratory systems; M51.36 Other intervertebral disc degeneration, lumbar region; M47.816 Spondylosis without myelopathy or radiculopathy, lumbar region | CPT/HCPCS: 71046; 72100; 72220 ==

== ENCOUNTER 2021-12-25 12:08 | Emergency (ER) | payer OTHER ==
[2021-12-25 12:58] LABS: #Eosinphils 0.1 thou/uL (0.0-0.7); #Lymphocytes 0.7 thou/uL (1.20-3.40); #Monocytes 0.4 thou/uL (0.11-0.59); #Neutrophils 2.3 thou/uL (1.40-6.50); %Basophils 1.3 % (0.0-1.0); %Eosinophils 1.8 % (0.0-10.0); %Lymphocytes 19.7 % (21.0-51.0); %Monocytes 11.4 % (0.0-10.0); %Neutrophils 65.7 % (42.0-75.0); Hemoglobin 13.2 g/dL (12.0-16.0); Mean Corpuscular HGB CONC 34.6 g/dL (32.0-36.0); Mean Platelet Volume 6.2 fL (7.4-10.4); Platelet Count 233 10x3/uL (130-400); Red Blood Cell (RBC) Count 3.78 mill/uL (4.20-5.40); White Blood Cell (WBC) Count 3.5 10x3/uL (4.8-10.8)
[2021-12-25 13:08] LABS: ALT (SGPT) 16 U/L (8-55); AST (SGOT) 18 U/L (5-34); Albumin 3.9 g/dL (3.4-4.8); Alkaline Phosphatase 80 U/L (40-110); Anion Gap 12 mmol/L (10-20); BUN (Urea Nitrogen) 12 mg/dL (9.8-20.1); Bilirubin, Total 0.5 mg/dL (0.2-1.2); Calc. Creatinine Clearance 0 mL/min (70-130); Carbon Dioxide 24 mmol/L (23-31); Chloride 106 mmol/L (98-107); Estimated GFR 72; Glucose 89 mg/dL (80-115); Lipase 20 U/L (8-78); Potassium 3.9 mmol/L (3.5-5.1); Protein, Total 6.9 g/dL (5.8-8.1); Sodium 138 mmol/L (136-145)
[2021-12-25 13:10] LABS: Bilirubin Negative (Negative); Blood, Urine Trace (Negative); Clarity Clear (Clear); Glucose, Urine (Dipstick) Negative (Negative); Ketone, Urine Trace mg/dL (Negative); Leukocyte Negative (Negative); Nitrite Negative (Negative); Protein, Urine (Dipstick) Negative (Neg-Trace); Specific Gravity, Urine 1.015 (1.005-1.030); Urobilinogen 0.2 mg/dL (Less than 2)
[2021-12-25] MEDS ORDERED: HYDROcodone/Acetaminophen 5/325 mg Tablet ONE (13:17)
[2021-12-25 13:18] LABS: Bacteria/HPF None Seen HPF (None Seen); Mucous/LPF Rare LPF (<2+); Squamous Epithelial None Seen HPF (0-3); WBC/HPF 0-3 HPF (0-3)
[2021-12-25 13:28] LABS: Platelet Morphology Comment Appears Adequate; RBC Morphology Normal
[2021-12-25 13:29] LABS: MDiff Complete? YES
== END 2021-12-25 14:14 | disposition home or self-care (01) ==
LOC: BURERS 12:08
DX: B02.9 Zoster without complications (principal); E03.9 Hypothyroidism, unspecified; I10 Essential (primary) hypertension; Z87.891 Personal history of nicotine dependence; Z79.82 Long term (current) use of aspirin; Z79.899 Other long term (current) drug therapy
CPT/HCPCS: 36415; 71045; 80053; 81003; 81015; 83605; 83690; 84484; 85025; 93005